=== PATIENT | female | born 2005 | race Caucasian/White ===

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

== ENCOUNTER 2025-03-02 14:47 | Outpatient (RCR) | payer BC, SELFPAY | END 2025-05-03 15:04 | disposition home or self-care (01) | LOC: PT 14:47 | PROVIDERS: PCP Nurse Practitioner Family; Visit Provider Nurse Practitioner Family | DX: R29.898 Other symptoms and signs involving the musculoskeletal system (principal) | CPT/HCPCS: 97110; 97112; 97161 ==